=== PATIENT | male | born 2000 | race Caucasian/White ===

== ENCOUNTER 2019-01-03 22:17 | Emergency (ER) | payer OTHER ==
[~2019-01-03] VITALS: Ht 170.2 cm; Wt 59.0 kg
== END 2019-01-04 01:10 | disposition home or self-care (01) ==
LOC: ER 22:17
DX: S02.2XXA Fracture of nasal bones, initial encounter for closed fracture (principal); F17.210 Nicotine dependence, cigarettes, uncomplicated; X58.XXXA Exposure to other specified factors, initial encounter; Y09 Assault by unspecified means
CPT/HCPCS: 70486; 90471; 90714; 99284-25

== ENCOUNTER → 2020-08-19 | Outpatient (CLI) | payer OTHER | END | disposition home or self-care (01) | LOC: LAB SHORT 09:53 → LAB 09:53 → PLD 09:53 | DX: R31.9 Hematuria, unspecified (principal) | CPT/HCPCS: 87086 ==